=== PATIENT | male | born 1965 | race Caucasian/White ===

== ENCOUNTER 2021-11-11 17:11 | Emergency (ER) | payer BC ==
[~2021-11-11] VITALS: Ht 167.6 cm; Wt 99.8 kg
--- NOTE | 2021-11-11 17:15 | NUR ---
PT PLACED IN BED 4. REPORT TO HARSH GRIMM
[2021-11-11 17:18] VITALS: BP_SYST 161
--- NOTE | 2021-11-11 17:27 | NUR ---
MD VICTORIA AT BEDSIDE ASSESSING PT
--- NOTE | 2021-11-11 17:30 | NUR ---
EKG being done at bedside by VIANEY Josue
--- NOTE | 2021-11-11 17:30 | NUR ---
chemistry laboratory technician at bedside.
[2021-11-11] MEDS: ALPRAZolam 0.25 MG TABLET PO ONE (17:31)
--- NOTE | 2021-11-11 18:09 | NUR ---
PT IS SLEEPING NOW, BEFORE, PT WAS PACING AND ANXIOUS. 25 MINUTES AFTER XANAX ADMINISTRAITON,, PT IS VERY CALM AND RESTING IN GURNEY.
[2021-11-11 18:13] LABS: ALANINE AMINOTRANSFERASE 47 U/L (12-78); ALBUMIN 3.9 g/dL (3.4-4.8); ASPARTATE AMINOTRANSFERASE 33 U/L (10-37); BASOPHILS # (AUTO) 0.2 K/uL (0.0-0.2); BASOPHILS % (AUTO) 2.4 % (0.0-2.0); CALCIUM 9.3 mg/dL (8.4-11.0); CREATININE 1.29 mg/dL (0.55-1.30); EOSINOPHILS # (AUTO) 0.1 K/uL (0.0-0.4); EOSINOPHILS % (AUTO) 1.4 % (0.0-4.0); GLUCOSE 133 mg/dL (70-99); HEMATOCRIT 45.8 % (36-54); HEMOGLOBIN 16.1 g/dL (14.0-18.0); LYMPHOCYTES % (AUTO) 21.4 % (20.5-51.5); MEAN CORPUSCULAR HEMOGLOBIN 31 pg (27-31); MEAN CORPUSCULAR HGB CONC 35 % (32-36); MEAN CORPUSCULAR VOLUME 89 fL (79.0-98.0); MONOCYTES # (AUTO) 0.5 K/uL (0.0-1.0); MONOCYTES % (AUTO) 5.5 % (1.7-9.3); NEUTROPHILS # (AUTO) 6.3 K/uL (1.8-7.7); NEUTROPHILS % (AUTO) 69.3 % (40.0-70.0); PLATELET COUNT (AUTO) 261 K/uL (130-430); RED BLOOD CELL COUNT(AUTO) 5.15 MIL/uL (4.2-6.2); RED CELL DISTRIBUTION WIDTH 13.7 % (9.0-15.0); TOTAL BILIRUBIN 0.4 mg/dL (0.0-1.0); UREA NITROGEN, BLOOD 13 mg/dL (8-21); WHITE BLOOD COUNT (AUTO) 9.2 K/uL (4.8-10.8)
[2021-11-11 18:21] LABS: GFR AFRICAN AMERICAN 74 mL/min (>90)
[2021-11-11 18:22] LABS: ANION GAP 7 (5-15); CHLORIDE 103 mmol/L (98-107); POTASSIUM 3.4 mmol/L (3.5-5.1); SODIUM SERUM 139 mmol/L (136-145)
[2021-11-11] MEDS ORDERED: ALPR0.5T PO (19:05)
--- NOTE | 2021-11-11 19:17 | NUR ---
Patient given written and verbal discharge instructions and verbalizes understanding. ER MD discussed with patient the results and treatment provided. Patient in stable condition. ID arm band removed. Rx of XANAX given. Patient educated on pain management and to follow up with PMD. Pain Scale 0. Opportunity for questions provided and answered. Medication side effect fact sheet provided.
[2021-11-11 19:18] VITALS: BP_SYST 140
== END 2021-11-11 19:17 | disposition home or self-care (01) ==
LOC: SED 17:11
DX: F41.0 Panic disorder [episodic paroxysmal anxiety] (principal)
CPT/HCPCS: 36415; 71045; 80053; 84484; 85025; 93005; 99285

== ENCOUNTER 2021-11-18 20:12 | Emergency (ER) | payer BC ==
[~2021-11-18] VITALS: Ht 167.6 cm; Wt 99.8 kg
[~2021-11-18 20:12] MED LIST: ALPR0.5T PO
[2021-11-18 20:39] VITALS: BP_SYST 143
[2021-11-18 21:26] LABS: HEMATOCRIT 43.1 % (36-54); PLATELET COUNT (AUTO) 244 K/uL (130-430); WHITE BLOOD COUNT (AUTO) 8.2 K/uL (4.8-10.8)
[2021-11-18 21:32] LABS: BASOPHILS % (AUTO) 0.5 % (0.0-2.0); EOSINOPHILS # (AUTO) 0.1 K/uL (0.0-0.4); EOSINOPHILS % (AUTO) 1.4 % (0.0-4.0); HEMOGLOBIN 15.1 g/dL (14.0-18.0); LYMPHOCYTES # (AUTO) 2.8 K/uL (1.0-5.5); LYMPHOCYTES % (AUTO) 34.2 % (20.5-51.5); MEAN CORPUSCULAR HEMOGLOBIN 31 pg (27-31); MEAN CORPUSCULAR HGB CONC 35 % (32-36); MEAN CORPUSCULAR VOLUME 89 fL (79.0-98.0); MONOCYTES # (AUTO) 0.5 K/uL (0.0-1.0); MONOCYTES % (AUTO) 5.9 % (1.7-9.3); NEUTROPHILS # (AUTO) 4.7 K/uL (1.8-7.7); RED BLOOD CELL COUNT(AUTO) 4.85 MIL/uL (4.2-6.2); RED CELL DISTRIBUTION WIDTH 14.1 % (9.0-15.0)
[2021-11-18 21:45] LABS: ANION GAP 8 (5-15); CALCIUM 9.4 mg/dL (8.4-11.0); CHLORIDE 103 mmol/L (98-107); CREATININE 1.22 mg/dL (0.55-1.30); GLUCOSE 110 mg/dL (70-99); POTASSIUM 3.2 mmol/L (3.5-5.1); SODIUM SERUM 138 mmol/L (136-145); UREA NITROGEN, BLOOD 11 mg/dL (8-21)
[2021-11-18 21:46] LABS: ALCOHOL, BLOOD < 3 mg/dL (<10)
[2021-11-18 21:50] LABS: ALANINE AMINOTRANSFERASE 39 U/L (12-78); ALBUMIN 3.7 g/dL (3.4-4.8); ASPARTATE AMINOTRANSFERASE 30 U/L (10-37); TOTAL BILIRUBIN 0.4 mg/dL (0.0-1.0)
[2021-11-18 21:53] LABS: GFR AFRICAN AMERICAN 79 mL/min (>90)
[2021-11-18] MEDS ORDERED: POTASSIUM CHLORIDE 20 MEQ TAB.PRT.SR PO ONE (22:15)
[2021-11-18 22:26] VITALS: BP_SYST 127
[2021-11-18 22:40] LABS: BARBITURATE, URINE NEGATIVE (NEG <=200); BENZODIAZEPINE, URINE POSITIVE (NEG <=150); CANNABINOID, URINE NEGATIVE (NEG <=50); COCAINE, URINE NEGATIVE (NEG <=150); METHAMPHETAMINES SCREEN,URINE NEGATIVE (NEG <=500); OPIATE, URINE NEGATIVE (NEG <=100); PHENCYCLIDINE SCREEN,URINE NEGATIVE (NEG <=25); URINE AMPHETAMINE NEGATIVE (NEG <=500); URINE METHADONE NEGATIVE (NEG <=200); URINE OXYCODONE SCREEN NEGATIVE (NEG <=100)
[2021-11-18 22:41] LABS: UR TRICYCLIC ANTIDEPRESSANTS NEGATIVE (NEG <=300); URINE PROPOXYPHENE SCREEN NEGATIVE (NEG <=300)
== END 2021-11-18 22:29 | disposition home or self-care (01) ==
LOC: SED 20:12
DX: F41.9 Anxiety disorder, unspecified (principal); I10 Essential (primary) hypertension
CPT/HCPCS: 36415; 80053; 80307; 84484; 85025; 93005; 99284; G0482

== ENCOUNTER 2023-06-25 00:58 | Emergency (ER) | payer BC, OTHER ==
[~2023-06-25] VITALS: Ht 172.7 cm; Wt 99.8 kg
[2023-06-25 01:27] VITALS: BP_SYST 100; PULSE 80; RESP 18; TEMP 98.3; O2SAT 97
[2023-06-25 03:40] VITALS: BP_SYST 109; PULSE 76; RESP 16; TEMP 98.3; O2SAT 96
== END 2023-06-25 03:40 | disposition home or self-care (01) ==
LOC: SED 00:58
DX: S43.401A Unspecified sprain of right shoulder joint, initial encounter (principal); S09.90XA Unspecified injury of head, initial encounter; I10 Essential (primary) hypertension; Z79.899 Other long term (current) drug therapy; W18.2XXA Fall in (into) shower or empty bathtub, initial encounter; Y93.89 Activity, other specified; Y92.89 Other specified places as the place of occurrence of the external cause; Y99.8 Other external cause status
CPT/HCPCS: 70450-TC; 76376; 99284